=== PATIENT | female | born 1970 | race Caucasian/White ===

== ENCOUNTER 2017-01-09 23:13 | Emergency (ER) | payer MEDICARE ==
[~2017-01-09 23:13] MED LIST: KETOROLAC TROME10 MG PO; PHENERGAN25 MG PO
== END 2017-01-10 02:20 | disposition home or self-care (01) ==
LOC: ER1 23:13
DX: M79.672 Pain in left foot (principal); M06.9 Rheumatoid arthritis, unspecified; Z88.1 Allergy status to other antibiotic agents
CPT/HCPCS: 73590; 73630; 99283

== ENCOUNTER → 2017-02-07 | Outpatient (CLI) | payer MEDICARE | LOC: KOH-I 12:00 | DX: M25.572 Pain in left ankle and joints of left foot (principal); M25.872 Other specified joint disorders, left ankle and foot | CPT/HCPCS: 73700 ==

== ENCOUNTER → 2020-12-08 | Outpatient (CLI) | payer OTHER ==
[~2020-12-08] MED LIST changes: +ALLEGRA ALLERG180 MG PO; +CLARITIN 10MG T10 MG PO; +CYCLOBENZAPRINE10 MG PO; +DICLOFENAC SOD100 GM TP; +DICLOFENAC SODI75 MG PO; +FLONASE 0.05% N16 GM; +LOSARTAN POTASS25 MG PO; +MOBIC15 MG PO; +NEURONTIN400 MG PO; +ONE-DAILY MULT1 EACH PO; +PERCOCET 7.5-31 EACH PO; +PHENERGAN 25 MG25 M1 PO; +PROAIR HFA8.5 GM INH; +PROTONIX 40 MG40 M1 PO; +TOPAMAX 100 MG100 MG PO; +TUSSIN CHE100 MG/5 M PO; +VITAMIN D21250 MCG PO; +VOLTAREN ARTHRI20 GM TP
== END ==
LOC: KOH-I 08:30
DX: M50.122 Cervical disc disorder at C5-C6 level with radiculopathy (principal)
CPT/HCPCS: 72125

== ENCOUNTER → 2021-01-20 | Outpatient (CLI) | payer OTHER ==
[2021-01-20 12:14] LABS: HEMOGLOBIN 13.6 gm/dl (12.3-15.3); RED BLOOD COUNT 4.44 M/UL (4.00-5.10); WHITE BLOOD COUNT 12.6 K/UL (4.5-11.0)
[2021-01-20 12:30] LABS: BUN/CREATININE RATIO 17 (0-10)
== END ==
LOC: EDSTATUS 11:00 → OPSV2 11:00
PROVIDERS: Orthopaedic Surgery
DX: Z01.818 Encounter for other preprocedural examination (principal); M54.12 Radiculopathy, cervical region
CPT/HCPCS: 36415; 71046; 80048; 81001; 85027; 87081; 87086; 93005

== ENCOUNTER → 2021-01-29 | Outpatient (CLI) | payer OTHER ==
[2021-01-29 15:31] LABS: HEMOGLOBIN 12.3 gm/dl (12.3-15.3); RED BLOOD COUNT 4.07 M/UL (4.00-5.10); WHITE BLOOD COUNT 8.6 K/UL (4.5-11.0)
== END ==
LOC: LAB 14:06
PROVIDERS: Orthopaedic Surgery
DX: Z01.812 Encounter for preprocedural laboratory examination (principal); R79.9 Abnormal finding of blood chemistry, unspecified
CPT/HCPCS: 36415; 85027

== ENCOUNTER → 2021-02-05 | Outpatient (CLI) | payer OTHER | LOC: LAB 12:46 | DX: Z01.818 Encounter for other preprocedural examination (principal); M54.12 Radiculopathy, cervical region; Z20.822 Contact with and (suspected) exposure to COVID-19 | CPT/HCPCS: 36415; 84520; 85610; 85730; 86850; 86900; 86901 ==

== ENCOUNTER 2021-02-06 09:23 | Inpatient (IN) | payer OTHER ==
[~2021-02-06] VITALS: Ht 170.2 cm; Wt 99.8 kg
[~2021-02-06 09:23] MED LIST changes: -ALLEGRA ALLERG180 MG PO; -CLARITIN 10MG T10 MG PO; -CYCLOBENZAPRINE10 MG PO; -DICLOFENAC SODI75 MG PO; -FLONASE 0.05% N16 GM; -LOSARTAN POTASS25 MG PO; -ONE-DAILY MULT1 EACH PO; -PHENERGAN 25 MG25 M1 PO; -PROAIR HFA8.5 GM INH; -TOPAMAX 100 MG100 MG PO; -TUSSIN CHE100 MG/5 M PO; -VOLTAREN ARTHRI20 GM TP
[2021-02-06] MEDS ORDERED: LOSARTAN POTASS25 MG PO (10:11)
[2021-02-06] MEDS ORDERED: MOBIC15 MG PO (10:12)
[2021-02-06] MEDS ORDERED: PROAIR HFA8.5 GM INH (10:13)
[2021-02-06] MEDS ORDERED: PHENERGAN 25 MG25 M1 PO (10:13)
[2021-02-06] MEDS ORDERED: CLARITIN 10MG T10 MG PO (10:14)
[2021-02-06] MEDS ORDERED: TOPAMAX 100 MG100 MG PO (10:14)
[2021-02-06] MEDS ORDERED: CYCLOBENZAPRINE10 MG PO (10:15)
[2021-02-06] MEDS ORDERED: ONE-DAILY MULT1 EACH PO (10:16)
[2021-02-06] MEDS ORDERED: DICLOFENAC SODI75 MG PO (17:34)
[2021-02-06] MEDS ORDERED: ALLEGRA ALLERG180 MG PO (17:37)
[2021-02-06] MEDS ORDERED: TUSSIN CHE100 MG/5 M PO (17:39)
[2021-02-06] MEDS ORDERED: FLONASE 0.05% N16 GM (17:40)
== END 2021-02-07 12:36 | disposition home or self-care (01) | DRG 29 ==
LOC: OR 09:23 → CCU 16:42 → OR 18:09 → CCU 18:11
PROVIDERS: ADMIT Orthopaedic Surgery
PROC: 0RG10A0 Fusion of Cervical Vertebral Joint with Interbody Fusion Device, Anterior Approach, Anterior Column, Open Approach (ICD-10-PCS; 2021-02-06)
PROC: 01N10ZZ Release Cervical Nerve, Open Approach (ICD-10-PCS; 2021-02-06)
PROC: 0RT30ZZ Resection of Cervical Vertebral Disc, Open Approach (ICD-10-PCS; principal; 2021-02-06 11:00)
DX: M54.12 Radiculopathy, cervical region (principal); F11.20 Opioid dependence, uncomplicated; M06.9 Rheumatoid arthritis, unspecified; K21.9 Gastro-esophageal reflux disease without esophagitis; G62.9 Polyneuropathy, unspecified; E55.9 Vitamin D deficiency, unspecified; M48.02 Spinal stenosis, cervical region; Z20.822 Contact with and (suspected) exposure to COVID-19; E04.1 Nontoxic single thyroid nodule; Z79.899 Other long term (current) drug therapy; Z85.828 Personal history of other malignant neoplasm of skin; Z87.891 Personal history of nicotine dependence; Z88.8 Allergy status to other drugs, medicaments and biological substances; Z56.0 Unemployment, unspecified; Z22.322 Carrier or suspected carrier of Methicillin resistant Staphylococcus aureus
CPT/HCPCS: 36415; 72040; 84520; 85610; 85730; 86850; 86900; 86901; 94760; 97162; C1713; C1762; C1781; J0690; J1040; J1100; J1170; J2001; J2250; J2405; J2704; J3010; J3370; J7040; J7120; U0003

== ENCOUNTER 2021-03-26 14:27 | Emergency (ER) | payer OTHER ==
[~2021-03-26 14:27] MED LIST changes: +ALLEGRA ALLERG180 MG PO; +CLARITIN 10MG T10 MG PO; +CYCLOBENZAPRINE10 MG PO; +DICLOFENAC SODI75 MG PO; +FLONASE 0.05% N16 GM; +LOSARTAN POTASS25 MG PO; +ONE-DAILY MULT1 EACH PO; +PHENERGAN 25 MG25 M1 PO; +PROAIR HFA8.5 GM INH; +TOPAMAX 100 MG100 MG PO; +TUSSIN CHE100 MG/5 M PO
[2021-03-26 15:28] LABS: HEMOGLOBIN 13.4 gm/dl (12.3-15.3); RED BLOOD COUNT 4.36 M/UL (4.00-5.10); WHITE BLOOD COUNT 9.7 K/UL (4.5-11.0)
[2021-03-26 15:53] LABS: BUN/CREATININE RATIO 11 (0-10)
[2021-03-26] MEDS ORDERED: VOLTAREN ARTHRI20 GM TP (16:20)
== END 2021-03-26 16:30 | disposition home or self-care (01) ==
LOC: ER1 14:27
PROVIDERS: Nurse Practitioner
DX: M25.461 Effusion, right knee (principal); M25.561 Pain in right knee; M19.90 Unspecified osteoarthritis, unspecified site; M06.9 Rheumatoid arthritis, unspecified
CPT/HCPCS: 73564; 80053; 85025; 85652; 86140; 87040; 99283

== ENCOUNTER 2022-07-03 11:01 | Emergency (ER) | payer OTHER ==
[~2022-07-03 11:01] MED LIST changes: +VOLTAREN ARTHRI20 GM TP
[2022-07-03] MEDS ORDERED: VALIUM5 MG PO (14:03)
== END 2022-07-03 14:25 | disposition home or self-care (01) ==
LOC: ER1 11:01
DX: M25.552 Pain in left hip (principal); I10 Essential (primary) hypertension; F17.210 Nicotine dependence, cigarettes, uncomplicated; M79.652 Pain in left thigh
CPT/HCPCS: 73700; 99283